=== PATIENT | male | born 1950 | race Caucasian/White ===

== ENCOUNTER 2018-08-01 12:38 | Inpatient (IN) | payer OTHER, BC ==
[~2018-08-01] VITALS: Ht 172.7 cm; Wt 81.6 kg
[2018-08-01 13:02] VITALS: BP 180/90
[2018-08-01 13:12] LABS: HEMATOCRIT 35.3 % (42.0-52.0); HEMOGLOBIN 11.5 gm/dL (14.0-18.0); MCHC 32.5 g/dL (28.0-37.0); MCV 86.1 fL (80.0-100.0); RBC 4.11 mil/uL (4.50-6.00); RDW 21.1 % (10.5-14.5); WBC 6.8 thou/uL (4.0-11.0)
[2018-08-01 13:25] LABS: ALBUMIN 3.2 g/dL (3.4-5.0); CALCIUM 9.7 mg/dL (8.5-10.1); CREATININE 1.1 mg/dL (0.7-1.3); POTASSIUM 4.2 mmol/L (3.5-5.1); TOTAL BILIRUBIN 0.8 mg/dL (<0.1-1.0); TOTAL PROTEIN 7.5 g/dL (6.4-8.2)
[2018-08-01] MEDS ORDERED: ELIQUIS5 MG PO (13:40)
[2018-08-01] MEDS ORDERED: VENTOLIN HFA 1818 GM INH (13:40)
[2018-08-01] MEDS ORDERED: GLUCOPHAGE XR500 MG PO (13:41)
[2018-08-01] MEDS ORDERED: ATIVAN0.5 MG PO (13:42)
[2018-08-01 15:22] LABS: BE(vivo) 1.1 mmol/L (-2 to +3); HCO3 23.8 mmol/L (22.0-26.0); PCO2 31.2 mmHg (35.0-45.0); PO2 74.6 mmHg (80.0-100.0); pH 7.501 (7.360-7.450); sO2 96.2 % (92.0-98.0)
[2018-08-01 15:58] VITALS: BP 144/89
[2018-08-01 16:03] LABS: HEMATOCRIT 31.2 % (42.0-52.0); HEMOGLOBIN 10.1 gm/dL (14.0-18.0); MCH 27.7 pg (26.0-34.0); MCHC 32.4 g/dL (28.0-37.0); MCV 85.4 fL (80.0-100.0); PLATELET COUNT 175 thou/uL (150-400); RBC 3.65 mil/uL (4.50-6.00); RDW 20.5 % (10.5-14.5); WBC 6.4 thou/uL (4.0-11.0)
--- NOTE | 2018-08-01 16:34 | 2DMMODE ---
[facility] [address] [place] [address] 2 D/M-MODE ECHOCARDIOGRAM Name: MEDHAT LIVINGSTON Room #: 207-P [facility] IN .R.#: [id number] ������������� Admission: 08/01/18 ������������� Attend Phys: Artem Fall, Discharge: ��� ������������� ��� Date of : 48 Date of Service: 08/01/18 1634 �� Report #: [id number] �������� ��������������������������������������������[id number] THIS REPORT FOR: //name// APPROVED REPORT Study performed: 08/01/2018 15:02:00 EXAM: Comprehensive 2D, Doppler, and color-flow Echocardiogram Patient Location: Bedside Room #: [facility] Status: routine BSA: 1.98 HR: 93 bpm BP: 180/90 mmHg Rhythm: NSR Other Information Study Quality: Adequate Indications Pulmonary Embolism Dyspnea 2D Dimensions IVSd: 11.25 (7-11mm) LVOT Diam: 23.00 (18-24mm) LVDd: 45.77 mm PWd: 12.14 (7-11mm) Ascending Ao: 36.92 (22-36mm) LVDs: 33.71 (25-40mm) Aortic Root: 33.34 mm LV Single Plane 4CH: 62.10 % LV Single Plane 2CH: 59.91 % Biplane EF: 61.1 % Volumes Left Atrial Volume (Systole) Single Plane 4CH: 29.69 mL Single Plane 2CH: 28.92 mL LA ESV Index: 20.00 mL/m2 Aortic Valve AoV Peak Bharath.: 1.53 m/s AO Peak Gr.: 9.62 mmHg LVOT Max P.80 mmHg LVOT Max V: 1.09 m/s MONIKA Vmax: 2.89 cm2 Mitral Valve [facility] [place] [address] [place] [address] 2 D/M-MODE ECHOCARDIOGRAM Name: MEDHAT LIVINGSTON Room #: 207-P [facility] IN [facility].#: [id number] ������������� Admission: 08/01/18 ������������� Attend Phys: Artem Fall, Discharge: ��� ������������� ��� Date of : 48 Date of Service: 08/01/18 1634 �� Report #: [id number] �������� ��������������������������������������������[id number] E/A Ratio: 0.6 MV Decel. Time: 215.62 ms MV E Max Bharath.: 0.70 m/s MV A Bharaht.: 1.22 m/s MV PHT: 62.53 ms IVRT: 58.82 ms TDI E/Lateral E': 11.67 E/Medial E': 8.75 Medial E' Bharath.: 0.08 m/s Lateral E' Bharath.: 0.06 m/s Pulmonary Valve PV Peak Bharath.: 0.88 m/s PV Peak Gr.: 3.11 mmHg Pulmonary Vein P Vein S: 0.30 m/s P Vein A: 0.33 m/s P Vein D: 0.24 m/s P Vein A Dur.: 121.1 msec P Vein S/D Ratio: 1.25 Tricuspid Valve RAP Estimate: 7.00 mmHg Left Ventricle The left ventricle is normal size. There is normal LV segmental wall motion. Borderline concentric left ventricular hypertrophy. Left ventricular systolic function is normal. The left ventricular ejection fraction is within the normal range. LVEF is 60%. Mild diastolic dysfunction is present (impaired relaxation pattern). Right Ventricle The right ventricle is normal size. The right ventricular systolic function is normal. Atria The left atrium size is normal. The right atrium size is normal. Aortic Valve The aortic valve is normal in structure. Trace aortic regurgitation. There is no aortic valvular stenosis. Mitral Valve The mitral valve is normal in structure. Mild mitral regurgitation. No evidence of mitral valve stenosis. [facility] [address] [place] [address] 2 D/M-MODE ECHOCARDIOGRAM Name: MIKIMEDHAT P Room #: 207-P [facility] IN .#: [id number] ������������� Admission: 08/01/18 ������������� Attend Phys: Artem Fall, Discharge: ��� ������������� ��� Date of : 48 Date of Service: 08/01/18 1634 �� Report #: [id number] �������� ��������������������������������������������[id number] Tricuspid Valve The tricuspid valve is normal in structure. There is no tricuspid valve regurgitation noted. Pulmonic Valve The pulmonary valve is normal in structure. There is no pulmonic valvular regurgitation. Great Vessels The aortic root is normal in size. IVC is normal in size and collapses >50% with inspiration. Pericardium There is no pericardial effusion. none <Conclusion> The left ventricle is normal size. Borderline concentric left ventricular hypertrophy. LVEF is 60%. Mild diastolic dysfunction is present (impaired relaxation pattern). The right ventricle is normal size. The left atrium size is normal. The aortic valve is normal in structure. Mild mitral regurgitation. There is no tricuspid valve regurgitation noted. The aortic root is normal in size. There is no pericardial effusion. No pleural effusion ��������������������������������������������� <ELECTRONICALLY SIGNED> ���������������������������������������� By: Artem Fall MD, FACC ��������������������������������������������� 08/01/18 1634 1634 1634 Artem Fall MD, FACC /INF
[2018-08-01 16:36] LABS: ABSOLUTE NEUTROPHILS 5.4 thou/uL (1.4-8.2); ANISOCYTOSIS 1+; SCHISTOCYTES OCCASIONAL
[2018-08-01 19:23] VITALS: BP 118/76
--- NOTE | 2018-08-01 19:59 | NUR ---
PT DIRECT ADMIT FROM DR. RICKETTS'S OFFICE. PT ARRIVED AT APPROX 1300 AND WAS SHIVERING/SHAKING STATING HE WAS VERY COLD AND UNCOMFORTABLE. OXYGEN GIVEN FOR COMFORT AND PT WARMED WITH BLANKETS. PT TAKEN TO FOR CTA. AFTERWARDS PT WAS CALM AND COMFORTABLE. PT VITALS WNL EXCEPT 1600 TEMP WAS 99.9. PT WAS SINUS RHYTHM ON TELEMETRY. MRSA SWAB SENT TO LAB. WILL CONT WITH POC.
[2018-08-01 23:08] VITALS: BP 113/59
--- NOTE | 2018-08-02 04:06 | NUR ---
ASSESSMENT DOCUMENTED.PT RESTING IN NO ACUTE DISTRESS.A/OX4.VSS.REMAINS AFEBRILE THIS SHIFT.ON RA.NO C/O RESP DISTRESS.ON IV ANTIBIOTICS THERAPY,TOLERATING.DR RICKETTS ROUNDED ON PT.NO N/OS.PT DENIES ANY NEEDS AT THIS TIME.POC IS TO CONT WITH IV ABT TX.
[2018-08-02 04:27] VITALS: BP 128/85
[2018-08-02 07:24] VITALS: BP 139/81
--- NOTE | 2018-08-02 08:42 | HC ---
[facility] [place] [address] [place] [address] CONSULTATION Name: MIKIMEDHAT John Room #: 207-P [facility] IN M.R.#: [id number] Admission: 08/01/18 ������������������ Attend Phys: Artem Fall MD, Discharge: ������������������ Date of : 48 Report #: [id number] THIS REPORT FOR: //name// CC: Dr. Corina SIMS DATE OF SERVICE: 08/01/2018 INFECTIOUS DISEASE CONSULTATION ATTENDING PHYSICIAN: Dr. Fall REASON FOR CONSULTATION: Shortness of breath, chills, question pulmonary embolism versus pneumonia. HISTORY OF PRESENT ILLNESS: A 68-year-old white man is admitted from Dr. Fall's office where he is seen today complaining of feeling breathless. The patient is referred to [facility] to undergo CT scan of the lungs with intravenous contrast and pulmonary embolism is not seen, but he has right-sided dirty lungs, pneumonitis type changes versus chronic findings. The patient relates he has uncontrolled chills earlier today. He also has been coughing and seldom if ever he coughed up much of anything. Significant in this patient's past medical history is the fact that he was diagnosed with esophageal adenocarcinoma of gastroesophageal junction and he underwent surgical intervention followed by radiation therapy and weekly Taxol and carboplatin is a new adjuvant chemotherapy started on 11/01/2018. The patient is receiving also weekly doses of Taxol and carboplatin. He had ____ on 01/18/2019 complicated by dehiscence and sepsis requiring hospitalization at [facility] for some 6 weeks. The patient did develop infected or thrombosed Port-A-Cath requiring placement of a right arm PICC and subsequently found to have a superficial phlebitis of left arm and treated for 3 months with oral apixaban. PAST MEDICAL HISTORY: Positive for rectal adenocarcinoma, status post resection and permanent colostomy. History of right total knee replacement. Cholecystectomy. Appendectomy. Calcium score is elevated. Diabetes mellitus, on metformin, which will be put on hold, 500 mg daily. Apixaban restarted. He is on p.r.n. lorazepam as well. DRUG ALLERGIES: None listed. SOCIAL HISTORY: Retired [employer]. Two children. No tobacco, no alcohol use to any extent. Was able to play some golf recently on the [place], [place]. REVIEW OF SYSTEMS: Chilling. No actual fever. Shortness of breath, dyspnea with exertion, coughing up some sputum. [facility] [address] [place] [address] CONSULTATION Name: MEDHAT LIVINGSTON Room #: 207-P [facility] IN [facility].#: [id number] Admission: 08/01/18 ������������������ Attend Phys: Artem Fall MD, Discharge: ������������������ Date of : 48 Report #: [id number] PHYSICAL EXAMINATION: GENERAL: Well-developed, nontoxic looking man, not dyspneic, on supplemental oxygen. VITAL SIGNS: BP 180/90, pulse 104, respirations 18, temp 98.6, O2 saturation 100%, I believe on room air, though he is on supplemental oxygen now. HEENMT: Normal. NECK: Supple, no thyromegaly. CHEST: Right-sided thoracotomy. Scar well healed. LUNGS: Decreased breath sounds at right lung base. HEART: S1, S2. No gallops. ABDOMEN: Colostomy in place, soft, no masses or megaly. GENITALIA AND RECTAL: Deferred. EXTREMITIES: No clubbing or cyanosis. No superficial phlebitis. NEUROLOGIC: Grossly within normal limits. RADIOLOGY EVALUATION: The CT scan of the chest and sonogram of the thyroid gland reveal enlargement of the right lobe of the thyroid gland. LABORATORY DATA: CT scan of the chest with IV contrast, negative for pulmonary embolism. Enlargement of the right lobe of the thyroid gland. Hiatal hernia. Healed right rib fractures. Ground glass infiltrate, right upper lung. Question infectious or inflammatory pneumonitis. Basilar atelectasis and scarring noted as well. Chest x-ray revealed right lung base opacity, question postsurgical and changes compatible with gastric pull-up procedure for gastroesophageal carcinoma. ASSESSMENT: 1. Shortness of breath, chilling and sputum production, rule out pneumonitis. 2. Immunosuppressed host. 3. Right-sided pneumonitis and question chronic changes of the right lung secondary to right thoracic surgery for gastroesophageal carcinoma, gastric pull-up. 4. History of adenocarcinoma of the esophagus, on chemotherapy as above. 5. Diabetes mellitus. 6. Rectal carcinoma, status post resection with permanent colostomy. 7. Status post right total knee replacement, cholecystectomy, appendectomy. 8. Diabetes mellitus. SUGGESTION AND RECOMMENDATION: We will obtain white blood cell count, differential and already done CBC. His white blood cell count was normal. Needs ESR, CRP, procalcitonin. Blood cultures x 2. Urine for legionella and pneumococcal antigen. Empirical trial of Levaquin, meropenem and Zyvox. Dr. Fall, thank you for requesting my suggestions. [facility] [address] [place] [address] CONSULTATION Name: MEDHAT LIVINGSTON Room #: 207-P [facility] IN M.R.#: [id number] Admission: 08/01/18 ������������������ Attend Phys: Artem Fall MD, Discharge: ������������������ Date of : 48 Report #: [id number] ADDENDUM: We will add fungal serology in view of calcified granulomas in spleen. ��������������������������������������������� <ELECTRONICALLY SIGNED> ���������������������������������������� By: Inocente Wylie MD ��������������������������������������������� 08/02/18 0842 1521 0620 Inocente Wylie MD /nt
[2018-08-02] MEDS ORDERED: LEVAQUIN 500 M500 M1 PO (09:43)
[2018-08-02 09:55] VITALS: BP 139/81
--- NOTE | 2018-08-02 20:04 | NUR ---
ASSUMED CARE OF PT AT 0700. PT A&OX4, UP AD DUSTIN. PT AFEBRILE, WITHOUT SIGNS OF INFECTION. PT VITALS WNL AND PT WAS SINUS RHYTHM ON TELEMETRY. DR. HWANG, INFECTIOUS DISEASE, AND CLEARED PT FOR DISCHARGE. PT HAD ONE IV AND TELEMETRY REMOVED. PT COMMUNICATED UNDERSTANDING OF ALL DISCHARGE ORDERS, MEDS AND FOLLOW UP APPTS. PT STATED HE HAD ALL BELONGINGS.
--- NOTE | 2018-08-03 08:36 | D ---
[facility] [place] [address] DISCHARGE SUMMARY Name: LIVINGSTON,MEDHAT P Room #: 207-P [facility] IN M.R.#: [id number] Admission: 08/01/18 ������������������ Attend Phys: Artem Fall MD, Discharge: 08/02/18 ������������������ Date of : 48 Report #: [id number] THIS REPORT FOR: //name// CC: Artem Rosa DO DATE OF SERVICE: 08/02/2018 HOSPITAL COURSE: The patient is a 68-year-old male who was admitted from the office yesterday with acute dyspnea and some relative hypoxemia in the office with a sat of 90%, history of esophageal cancer, status post chemotherapy 1 month prior. Also had a left upper extremity DVT recently and was being treated with Eliquis, which was just restarted and had been held. Obviously concerned about a pulmonary embolism. He was admitted. A CT scan was negative for possible pulmonary infiltrate in the right upper lobe. Hematology/Oncology and Infectious Disease evaluated. The procalcitonin was negative. He is improved this morning and will be discharged on Levaquin 750 mg daily for another week. He will restart his home medications, which include Eliquis 5 q. 12, Ativan, metformin, ranitidine, and albuterol. He has followup scheduled with Hematology/Oncology regarding the continued therapy for the cancer. The DVT in the upper extremity appears to be predominantly resolved on exam. However, anticoagulation will continue, he is hypercoagulable state. DISCHARGE DIAGNOSES: 1. Acute hypoxemia. 2. Esophageal cancer status post esophagectomy. 3. Hypertension. 4. Anemia. 5. Anxiety disorder. 6. Deep venous thrombosis of upper extremity. He will call with any issues. Slowly increase his activity as tolerated. Thank you for asking me to assist in the care of this patient. ��������������������������������������������� <ELECTRONICALLY SIGNED> ���������������������������������������� By: Artem Fall MD, FACC ��������������������������������������������� 08/03/18 0836 0944 1213 Artem Fall MD, FACC /nt
--- NOTE | 2018-08-08 21:24 | HC ---
[facility] [place] [address] CONSULTATION Name: MEDHAT LIVINGSTON Room #: 207-P [facility] IN M.R.#: [id number] Admission: 08/01/18 ������������������ Attend Phys: Artem Fall MD, Discharge: 08/02/18 ������������������ Date of : 48 Report #: [id number] THIS REPORT FOR: //name// CC: Artem SIMS HISTORY OF PRESENT ILLNESS: This 68-year-old white male was admitted directly from Dr. Fall's office to the Coronary Care Unit with complaints of worsening shortness of breath along with uncontrolled chilling. He is a patient of Dr. Fall and has known coronary artery calcifications on an earlier CT scan. He is recently undergoing therapy for esophageal adenocarcinoma through [facility] under the direction of Dr. Gutierrez. He was found to have a mass at the GE junction last July that was initially felt to be a T3 disease. He underwent neoadjuvant radiation and chemotherapy with downsizing of this tumor and ultimately an esophagectomy on 01/18/[address] Hutson showing T2 N1 disease that was HER-2 negative, EBV negative, PD-L1 positive in dMMR. Postoperatively, He had an anastomotic leak, which required a prolonged hospitalization. He subsequently has been receiving XELOX with capecitabine and oxaliplatin given on a 21-day schedule. He was last treated and seen at on 07/05/2018 and was due for his fourth and last treatment this week. PAST MEDICAL HISTORY: Also significant for previous rectal adenocarcinoma with resection and permanent colostomy. He has undergone prior cholecystectomy, appendectomy and right knee replacement surgery. He did have a Port-A-Cath removed and subsequent PICC line and has had ongoing oral anticoagulation with apixaban for thrombosis. ALLERGIES: None known. MEDICATIONS: As listed on the MFR. SOCIAL HISTORY: Retired [employer]. FAMILY HISTORY: Not contributory. REVIEW OF SYSTEMS: As in history of present illness with shortness of breath and chilling. There was no documented fever. PHYSICAL EXAMINATION: HEENT: Mouth clear. NECK: Supple. CHEST: Showed previous right-sided thoracotomy incision is well healed, diminished breath sounds in the right lung base. [facility] [address] [place] [address] CONSULTATION Name: MEDHAT LIVINGSTON John Room #: 207-P [facility] IN [facility].#: [id number] Admission: 08/01/18 ������������������ Attend Phys: Artem Fall MD, Discharge: 08/02/18 ������������������ Date of : 48 Report #: [id number] CARDIOVASCULAR: Normal S1, S2. ABDOMEN: Colostomy is present. EXTREMITIES: No clubbing, cyanosis, edema. NEUROLOGIC: No focal localizing signs. HOSPITALIZATION LABORATORY DATA: CT scan shows no active evidence of pulmonary embolism or metastasis. ASSESSMENT: Status post clinical T3 N0 M0 GE junction adenocarcinoma of the esophagus with ongoing adjuvant therapy. PLAN: He has a scheduled appointment at this week with Dr. Gutierrez for his fourth and last planned dose of adjuvant chemotherapy. Thanks for notifying us of his hospitalization and allowing us to participate in his care. ��������������������������������������������� <ELECTRONICALLY SIGNED> ���������������������������������������� By: Mary Beth Casas MD ��������������������������������������������� 08/08/18 2124 1123 2156 Mary Beth Casas MD /nt
== END 2018-08-02 12:02 | disposition home or self-care (01) | DRG 194 ==
LOC: 2N 12:38 → ENTRNSPT 08-02 11:39 → EDTRNSPTSTS 08-02 12:00 → 2N 08-02 12:02
PROVIDERS: Internal Medicine Infectious Disease; Nurse Practitioner Adult Health; ADMIT Internal Medicine Cardiovascular Disease
DX: J18.9 Pneumonia, unspecified organism (principal); I82.622 Acute embolism and thrombosis of deep veins of left upper extremity; C15.9 Malignant neoplasm of esophagus, unspecified; D68.59 Other primary thrombophilia; R09.02 Hypoxemia; D64.9 Anemia, unspecified; F41.9 Anxiety disorder, unspecified; I10 Essential (primary) hypertension; E11.9 Type 2 diabetes mellitus without complications; Z96.651 Presence of right artificial knee joint; Z92.3 Personal history of irradiation; Z92.21 Personal history of antineoplastic chemotherapy; Z90.49 Acquired absence of other specified parts of digestive tract; Z79.84 Long term (current) use of oral hypoglycemic drugs; Z85.048 Personal history of other malignant neoplasm of rectum, rectosigmoid junction, and anus
CPT/HCPCS: 10081; 10797

== ENCOUNTER → 2019-05-09 | Outpatient (CLI) | payer OTHER, BC ==
[~2019-05-09] MED LIST: ATIVAN0.5 MG PO; ELIQUIS5 MG PO; GLUCOPHAGE XR500 MG PO; LEVAQUIN 500 M500 M1 PO; VENTOLIN HFA 1818 GM INH
== END ==
LOC: SJCVC 10:52
DX: I25.10 Atherosclerotic heart disease of native coronary artery without angina pectoris (principal); E78.49 Other hyperlipidemia; C15.9 Malignant neoplasm of esophagus, unspecified; Z79.84 Long term (current) use of oral hypoglycemic drugs; Z79.899 Other long term (current) drug therapy

== ENCOUNTER → 2019-05-31 | Outpatient (CLI) | payer OTHER, BC | LOC: SJCVCIMAG 05-16 08:43 | DX: I25.10 Atherosclerotic heart disease of native coronary artery without angina pectoris (principal); E78.01 Familial hypercholesterolemia; Z82.49 Family history of ischemic heart disease and other diseases of the circulatory system; Z87.891 Personal history of nicotine dependence ==

== ENCOUNTER → 2020-06-24 | Outpatient (CLI) | payer OTHER, BC | LOC: SJCVC 10:43 | PROVIDERS: ATTEND Internal Medicine Cardiovascular Disease | DX: R94.31 Abnormal electrocardiogram [ECG] [EKG] (principal); R93.1 Abnormal findings on diagnostic imaging of heart and coronary circulation; I10 Essential (primary) hypertension; E78.00 Pure hypercholesterolemia, unspecified; C15.9 Malignant neoplasm of esophagus, unspecified; K21.9 Gastro-esophageal reflux disease without esophagitis; I25.10 Atherosclerotic heart disease of native coronary artery without angina pectoris; Z90.49 Acquired absence of other specified parts of digestive tract; Z98.890 Other specified postprocedural states; Z87.891 Personal history of nicotine dependence; Z79.1 Long term (current) use of non-steroidal anti-inflammatories (NSAID); Z79.84 Long term (current) use of oral hypoglycemic drugs ==

== ENCOUNTER → 2021-05-01 | Outpatient (CLI) | payer OTHER, BC | LOC: SJCVCIMAG 09:31 | PROVIDERS: ATTEND Internal Medicine Cardiovascular Disease | DX: I08.0 Rheumatic disorders of both mitral and aortic valves (principal); E78.5 Hyperlipidemia, unspecified; I10 Essential (primary) hypertension; R93.1 Abnormal findings on diagnostic imaging of heart and coronary circulation; Z82.49 Family history of ischemic heart disease and other diseases of the circulatory system; Z87.891 Personal history of nicotine dependence; Z79.899 Other long term (current) drug therapy ==